=== PATIENT | female | born 1970 | race Asian ===

== ENCOUNTER 2018-11-07 07:32 | Emergency (ER) | payer OTHER ==
[2018-11-07 07:49] VITALS: BP 136/72; PULSE 78; TEMP 98.6; BMI 21.0
[2018-11-07] MEDS ORDERED: METHOCARBAMOL 500 MG TABLET PO ONE (08:45)
[2018-11-07] MEDS ORDERED: KETOROLAC TROMETHAMINE 60 MG/2 ML VIAL IM ONE (08:45)
[2018-11-07] MEDS ORDERED: KETOROLAC TROMETHAMINE 60 MG/2 ML VIAL ONE (08:51)
[2018-11-07] MEDS ORDERED: METHOCARBAMOL 500 MG TABLET ONE (08:51)
--- NOTE | 2018-11-07 09:00 | PDOC ---
History of Present Illness <Manish Bauer - Last Filed: 11/07/18 09:33> - General History Source: Patient Exam Limitations: Clinical Condition - History of Present Illness Initial Comments: 11/07/18 09:27 Patient with history of scoliosis present with complaint of 2 day history of neck stiffness and pain to posterior neck after doing heavy lifting 4 days ago while moving. Patient report unable to 10 neck to the side due to pain and stiffness. Denies any trauma or injury to neck. Denies headache, nausea, vomiting, tingling or numbness sensation. Denies dizziness or any other symptoms. Timing/Duration: other (2 days) <Manuel Bueno - Last Filed: 11/07/18 09:38> - General Chief Complaint: Pain Stated Complaint: NECK PAIN Time Seen by Provider: 11/07/18 08:41 Past History <Manish Bauer - Last Filed: 11/07/18 09:33> - Past Medical History COPD: No CHF: No - Suicide/Smoking/Psychosocial Hx Smoking History: Never smoked <Manuel Bueno - Last Filed: 11/07/18 09:38> - Past Medical History Allergies/Adverse Reactions: Allergies Allergy/AdvReac Type Severity Reaction Status Date / Time No Known Allergies Allergy Verified 11/07/18 07:45 Home Medications: Ambulatory Orders Methocarbamol [Robaxin -] 500 mg PO TID #21 tablet 11/07/18 Naproxen 500 mg PO BID PRN #20 tablet 11/07/18 Review of Systems - Review of Systems Able to Perform ROS?: Yes Is the patient limited Swazi proficient: No Constitutional: No: Malaise, Weakness HEENTM: No: Eye Pain, Blurred Vision, Recent change in vision Respiratory: No: Symptoms reported, See HPI, Cough, Orthopnea, Shortness of Breath, SOB with Exertion, SOB at Rest, Stridor, Wheezing, Productive cough, Hemoptysis, Other Cardiac (ROS): No: Symptoms Reported, See HPI, Chest Pain, Edema, Irregular Heart Rate, Lightheadedness, Palpitations, Syncope, Chest Tightness, Other ABD/GI: No: Nausea, Vomiting Musculoskeletal: Yes: Symptoms Reported, See HPI, Neck Pain, Joint Stiffness ( neck) Neurological: No: Headache All Other Systems: Reviewed and Negative <Manuel Bueno - Last Filed: 11/07/18 09:38> *Physical Exam - Vital Signs Last Vital Signs Temp Pulse Resp BP Pulse Ox 98.6 F 78 16 136/72 99 11/07/18 07:46 11/07/18 07:46 11/07/18 07:46 11/07/18 07:46 11/07/18 07:46 <Manish Bauer - Last Filed: 11/07/18 09:33> - Vital Signs Last Vital Signs Temp Pulse Resp BP Pulse Ox 98.6 F 78 16 136/72 99 11/07/18 07:46 11/07/18 07:46 11/07/18 07:46 11/07/18 07:46 11/07/18 07:46 - Physical Exam Comments: 11/07/18 08:59 GENERAL: Well developed, well nourished. Awake and alert. No acute distress. CARDIOVASCULAR: Regular rate and rhythm. No murmurs, rubs, or gallops. PULMONARY: No evidence of respiratory distress. Lungs clear to auscultation bilaterally. No wheezing, rales or rhonchi. ABDOMINAL: Soft. Non-tender. Non-distended. No rebound or guarding. No organomegaly. Normoactive bowel sounds MUSCULOSKELETAL : mild tenderness over posterior paravertebral muscle cervical spine of C2-C7 on bilateral sides. Restricted neck movement due to pain and spasm of cervical spine.No bony deformities SKIN: Warm and dry. Normal capillary refill. NEUROLOGICAL: Alert, awake, appropriate. No motor deficits in the lower extremities. Gait is normal without ataxia. PSYCHIATRIC: Cooperative. Good eye contact. Appropriate mood and affect. General Appearance: Yes: Nourished, Appropriately Dressed. No: Apparent Distress <Manuel Bueno - Last Filed: 11/07/18 09:38> ED Treatment Course - Medications Given in the ED: ED Medications Discontinued Medications Generic Name Dose Route Start Last Admin Trade Name Freq PRN Reason Stop Dose Admin Ketorolac Tromethamine 60 mg 11/07/18 08:45 11/07/18 08:57 Toradol Injection - IM 11/07/18 08:46 60 mg ONCE ONE Administration Methocarbamol 500 mg 11/07/18 08:45 11/07/18 08:57 Robaxin - PO 11/07/18 08:46 500 mg ONCE ONE Administration <Nassef,Yomna - Last Filed: 11/07/18 09:33> - RADIOLOGY Radiology Studies Ordered: Category Date Time Status SPINE-CERVICAL [RAD] Stat Radiology 11/07/18 08:45 Ordered - Medications Given in the ED: ED Medications Discontinued Medications Generic Name Dose Route Start Last Admin Trade Name Katelyn PRN Reason Stop Dose Admin Ketorolac Tromethamine 60 mg 11/07/18 08:45 11/07/18 08:57 Toradol Injection - IM 11/07/18 08:46 60 mg ONCE ONE Administration Methocarbamol 500 mg 11/07/18 08:45 11/07/18 08:57 Robaxin - PO 11/07/18 08:46 500 mg ONCE ONE Administration <Manuel Bueno - Last Filed: 11/07/18 09:38> Medical Decision Making - Medical Decision Making 11/07/18 09:28 Patient with history of scoliosis present with complaint of 2 day history of neck stiffness and pain to posterior neck after doing heavy lifting 4 days ago while moving. Patient report unable to 10 neck to the side due to pain and stiffness. Denies any trauma or injury to neck. Denies headache, nausea, vomiting, tingling or numbness sensation. Denies dizziness or any other symptoms. Exam significant for moderate tenderness to bilateral paracervical muscle C2-C7 with restricted neck movement due to pain to neck. Otherwise normal exam. Symptoms likely neck spasm from strain. Toradol 60 mg IM and Robaxin 500 mg by mouth given for pain and spasm. X-ray of cervical spine shows chronic arthritis with scoliosis. No acute dislocation or fracture on x-ray. Patient is stable for discharge on naproxen when necessary for pain and Robaxin as needed for spasm with neurosurgery follow-up as needed <Manuel Bueno - Last Filed: 11/07/18 09:38> *DC/Admit/Observation/Transfer <Manish Bauer - Last Filed: 11/07/18 09:33> - Discharge Dispostion Decision to Admit order: No <Manuel Bueno - Last Filed: 11/07/18 09:38> Diagnosis at time of Disposition: Neck muscle spasm, Neck pain, Strain of neck - Discharge Dispostion Disposition: HOME Condition at time of disposition: Stable - Prescriptions Prescriptions: Methocarbamol [Robaxin -] 500 mg PO TID #21 tablet Naproxen 500 mg PO BID PRN #20 tablet PRN Reason: pain - Referrals Referrals: Mil Ahuja MD, FAANS [Staff Physician] - - Patient Instructions Printed Discharge Instructions: DI for Torticollis Additional Instructions: Your x-ray shows mild arthritis changes with spasm. Your symptoms likely caused by muscle spasm of the spine. Take prescribed medication as needed for pain and spasm. Apply hot compresses to neck 2-3 times a day for 5-10 minutes as needed for stiffness. Follow-up referred orthopedics neuro if no improvement in 4 days - Post Discharge Activity Forms/Work/School Notes: Back to Work
== END 2018-11-07 09:34 | disposition home or self-care (01) ==
LOC: JER 07:32
PROC: 3E0233Z Introduction of Anti-inflammatory into Muscle, Percutaneous Approach (ICD-10-PCS; principal; 2018-11-07)
DX: R25.2 Cramp and spasm (principal); M54.2 Cervicalgia; S16.1XXA Strain of muscle, fascia and tendon at neck level, initial encounter; X58.XXXA Exposure to other specified factors, initial encounter; Y93.89 Activity, other specified; Y92.89 Other specified places as the place of occurrence of the external cause
CPT/HCPCS: 72050-TC-FY; 99282-25

== ENCOUNTER 2019-03-20 22:49 | Emergency (ER) | payer OTHER ==
[2019-03-20 22:52] VITALS: BP 161/62; PULSE 74; TEMP 97.8; BMI 20.9
--- NOTE | 2019-03-20 23:17 | PDOC ---
*Physical Exam - Vital Signs Last Vital Signs Temp Pulse Resp BP Pulse Ox 97.8 F 74 18 161/62 100 03/20/19 22:50 03/20/19 22:50 03/20/19 22:50 03/20/19 22:50 03/20/19 22:50 Medical Decision Making - Medical Decision Making 03/20/19 23:17 Patient seen by the advanced practice provider under my direct supervision. Ancillary testing reviewed as necessary. I agree with plan as outlined by the advanced practice provider. Discharge - Discharge Information Problems reviewed: Yes Clinical Impression/Diagnosis: Conjunctivitis Qualifiers: Conjunctivitis type: acute Acute conjunctivitis type: unspecified Laterality: bilateral Qualified Code(s): H10.33 - Unspecified acute conjunctivitis, bilateral Condition: Stable Disposition: HOME - Additional Discharge Information Prescriptions: Erythromycin 0.5% Eye Ointment [Erythromycin 0.5% Eye Ointment -] 1 applic OU QID #1 tube - Follow up/Referral Referrals: Alonso Diaz MD [Staff Physician] - Aysha Andrade MD [Primary Care Provider] - - Patient Discharge Instructions Additional Instructions: Rest, avoid rubbing eyes Wash hands frequently as this is very contagious Wash hands, use eye drops as directed, wash hands after use Do not share eye ointment with other person to may become infected as this will infect them Erthromycin ointment to affected eye 4 times a day for 5 days Avoid contact with others until redness and discharge is gone from eyes. Followup with ophthalmology or private physician as needed - Post Discharge Activity Work/Back to School Note: Back to Work
[2019-03-20] MEDS ORDERED: FLUORESCEIN NA 1 EA STRIP OU ONE (23:20)
[2019-03-20] MEDS ORDERED: TETRACAINE 0.5% HCL 0.6ML DROPPER.BOTTLE OU ONE (23:20)
--- NOTE | 2019-03-20 23:20 | PDOC ---
History of Present Illness - General Chief Complaint: Eye Problem Stated Complaint: EYE INFECTION Time Seen by Provider: 03/20/19 23:14 History Source: Patient Exam Limitations: No Limitations - History of Present Illness Initial Comments: 03/20/19 23:22 HISTORY OF PRESENT ILLNESS: This is a 49-year-old woman presents to the emergency department for evaluation of bilateral eye pain and redness starting today. Patient reports infrequent contact lens use but used yesterday without difficulty and then when she inserted today her vision became foggy and she noted pain to bilateral eyes almost immediately. Patient reports since she was experiencing the symptoms she pulled the contacts out of her eyes and after approximately 1 to 2 hours the cloudiness resolved. Patient with continued tearing from her eyes but is unsure if she is had any purulent drainage. She denies any change in her vision or trauma. No recent travel or sick contacts. PAST MEDICAL HISTORY: Denies past medical history SURGICAL HISTORY: Denies ALLERGIES: No known drug allergies REVIEW OF SYSTEMS General/Constitutional: Denies fever or chills. Denies weakness, weight change. HEENT: See HPI Cardiovascular: Denies chest pain or shortness of breath. Respiratory: Denies cough, wheezing, or hemoptysis. Gastrointestinal: Denies nausea, vomiting, diarrhea or constipation. Denies rectal bleeding. Genitourinary: Denies dysuria, frequency, or change in urination. Musculoskeletal: Denies joint or muscle swelling or pain. Denies neck or back pain. Skin and breasts: Denies rash or easy bruising. Neurologic: Denies headache, vertigo, loss of consciousness, or loss of sensation. Psychiatric: Denies depression or anxiety. Endocrine: Denies increased thirst. Denies abnormal weight change. Hematologic/Lymphatic: Denies anemia, easy bleeding, or history of blood clots. Allergic/Immunologic: Denies hives or skin allergy. Denies latex allergy. PHYSICAL EXAM General Appearance: Well-appearing, appropriately dressed. No apparent distress , no intoxication. HEENT: EOMI, PERRLA, normal ENT inspection, normal voice, TMs normal, pharynx normal. +conjunctival pallor. +photophobia. No scleral icterus. Neck: Supple. Trachea midline. No tenderness, rigidity, carotid bruit, stridor , lymphadenopathy, or thyromegaly. Respiratory/Chest: Lungs CTAB. No shortness of breath, chest tenderness, respiratory distress, accessory muscle use. No crackles, rales, rhonchi, stridor , wheezing, dullness Cardiovascular: RRR. S1, S2. No JVD, murmur, bradycardia, tachycardia. Vascular Pulses: Dorsalis-Pedis (R): 2+, Dorsalis-Pedis (L): 2+ Gastrointestinal/Abdominal: Normal bowel sounds. Abdomen soft, non-distended. No tenderness or rebound tenderness. No organomegaly, pulsatile mass, guarding, hernia, hepatomegaly, splenomegaly. Lymphatic: No adenopathy, tenderness. Musculoskeletal/Extremities: Normal inspection. FROM of all extremities, normal capillary refill. Pelvis Stable. No CVA tenderness. No tenderness to extremities, pedal edema, swelling, erythema or deformity. Integumentary: Appropriate color, dry, warm. No cyanosis, erythema, jaundice or rash Neurologic: rn procedure II-XII intact. Fully oriented, alert. Appropriate mood/affect. Motor strength 5/5. No appreciable EOM palsy, facial droop or sensory deficit. Past History - Past Medical History Allergies/Adverse Reactions: Allergies Allergy/AdvReac Type Severity Reaction Status Date / Time No Known Allergies Allergy Verified 03/20/19 22:52 Home Medications: Ambulatory Orders Methocarbamol [Robaxin -] 500 mg PO TID #21 tablet 11/07/18 Naproxen 500 mg PO BID PRN #20 tablet 11/07/18 Erythromycin 0.5% Eye Ointment [Erythromycin 0.5% Eye Ointment -] 1 applic OU QID #1 tube 03/20/19 COPD: No CHF: No - Psycho Social/Smoking Cessation Hx Smoking History: Never smoked *Physical Exam - Vital Signs Last Vital Signs Temp Pulse Resp BP Pulse Ox 97.8 F 74 18 161/62 100 03/20/19 22:50 03/20/19 22:50 03/20/19 22:50 03/20/19 22:50 03/20/19 22:50 Medical Decision Making - Medical Decision Making 03/20/19 23:25 A/P: 49-year-old woman with bilateral eye pain and photophobia after contact lens use EYE EXAMINATION: Visual acuity: 20/50 in the left eye, 20/50 in the right eye, near, uncorrected The lid and lashes are normal. Extraocular movements are intact. The conjunctiva is erythematous with injection. Clear discharge. The corneal surface is normal post tetracaine and fluorescein. There is no corneal abrasion or foreign body. There is no abnormal fluorescein uptake. The pupils are equal, round and reactive to light. The fundus shows normal vessels and normal discs. Patient with conjunctivitis likely not infectious giving story, but I will treat with erythromycin ointment bilateral eyes for the next 5 days. I discussed the physical exam findings, ancillary test results and final diagnoses with the patient. I answered all of the patient's questions. The patient was satisfied with the care received and felt comfortable with the discharge plan and treatment plan. The patient will call their primary care physician within 24 hours to arrange follow-up and will return to the Emergency Department with any new, persistent or worsening symptoms. Discharge - Discharge Information Problems reviewed: Yes Clinical Impression/Diagnosis: Conjunctivitis Qualifiers: Conjunctivitis type: acute Acute conjunctivitis type: unspecified Laterality: bilateral Qualified Code(s): H10.33 - Unspecified acute conjunctivitis, bilateral Condition: Stable Disposition: HOME - Admission No - Additional Discharge Information Prescriptions: Erythromycin 0.5% Eye Ointment [Erythromycin 0.5% Eye Ointment -] 1 applic OU QID #1 tube - Follow up/Referral Referrals: Aysha Andrade MD [Primary Care Provider] - Alonso Diaz MD [Staff Physician] - - Patient Discharge Instructions Additional Instructions: Rest, avoid rubbing eyes Wash hands frequently as this is very contagious Wash hands, use eye drops as directed, wash hands after use Do not share eye ointment with other person to may become infected as this will infect them Erthromycin ointment to affected eye 4 times a day for 5 days Avoid contact with others until redness and discharge is gone from eyes. Followup with ophthalmology or private physician as needed - Post Discharge Activity Work/Back to School Note: Back to Work
[2019-03-20] MEDS ORDERED: TETRACAINE 0.5% OPHTH SOLN 2 ML BOTTLE ONE (23:23)
[2019-03-20] MEDS ORDERED: FLUORESCEIN NA 1 EA STRIP ONE (23:23)
[2019-03-20] MEDS ORDERED: ERYTHROMYCIN 0.5% OPHTHALMIC OINTMENT 3.5 GM TUBE OU ONE (23:34)
[2019-03-20] MEDS ORDERED: ERYTHROMYCIN 0.5% OPHTHALMIC OINTMENT 3.5 GM TUBE ONE (23:40)
== END 2019-03-20 23:45 | disposition home or self-care (01) ==
LOC: JER 22:49
DX: H10.33 Unspecified acute conjunctivitis, bilateral (principal)
CPT/HCPCS: 99281-25